=== PATIENT | female | born 1955 | race Caucasian/White ===

== ENCOUNTER 2019-05-10 09:32 | Inpatient (IN) ==
[2019-05-10] MEDS ORDERED: CeFAZolin Syr 3,000MG/30 ML 3,000 MG/30 ML SYRINGE IVPB ONE (09:57)
[2019-05-10] MEDS ORDERED: Ringers Solution, Lactated 1,000 ML IVC SCH ×2 (10:00→15:13)
[2019-05-10 10:16] LABS: Hemoglobin 12.6 g/dL (11.5-15.4); Mean Corpuscular Volume 101.2 fL (83.0-100.0); Red Cell Distribution Width 14.6 % (11.5-14.5)
[2019-05-10 10:18] LABS: Hematocrit 40.7 % (35.3-44.9); Immature Platelets 1.3 % (1.1-6.1); Mean Corpuscular Hemoglobin 31.3 pg (28.0-33.3); Mean Platelet Volume 9.5 fL (9.4-12.4); Platelet Count 184 K/mcL (140-400); Red Blood Count 4.02 M/mcL (3.82-4.97); White Blood Count 23.2 K/mcL (4.3-11.1)
[2019-05-10 10:41] LABS: Lymphocytes # 12.5 K/mcL (0.6-4.6); Monocytes # 2.8 K/mcL (0.0-1.3); Neutrophils # 7.9 K/mcL (1.6-8.9)
[2019-05-10 10:43] LABS: Platelet Estimate Normal (Normal); Reactive Lymphocytes Present (Not Present)
[2019-05-10] MEDS ORDERED: Ethanol\\Acetic Acid\\Na Ace\\Ben 1,000 ML IRRIG.SOLN IR ONE (10:44)
[2019-05-10] MEDS ORDERED: Acetaminophen IV 1,000 MG/100 ML INFUS..BTL IVPB ONE (10:45)
[2019-05-10] MEDS ORDERED: *HR* Rocuronium Bromide 50 MG/5 ML VIAL ONE (10:52)
[2019-05-10] MEDS ORDERED: Ondansetron 4 MG/2 ML VIAL ONE (10:52)
[2019-05-10] MEDS ORDERED: *HR* FentaNYL (PF) 100 MCG/2 ML VIAL ONE ×2 (10:52→12:08)
[2019-05-10] MEDS ORDERED: *HR* Succinylcholine 200 MG/10 ML VIAL IVP ONE (10:52)
[2019-05-10] MEDS ORDERED: *HR* Midazolam HCl 2 MG/2 ML VIAL ONE (10:52)
[2019-05-10] MEDS ORDERED: Dexamethasone 4 MG/ML VIAL ONE (10:52)
[2019-05-10] MEDS ORDERED: Lidocaine -MPF 2% 2 ML VIAL ONE (10:52)
[2019-05-10] MEDS ORDERED: *HR* Propofol 200 MG/20 ML VIAL IVP ONE (10:52)
[2019-05-10] MEDS ORDERED: *HR* Meperidine 25 MG/ML SYRINGE IVP PRN (11:08)
[2019-05-10] MEDS ORDERED: Ondansetron 4 MG/2 ML VIAL IVP ONE (11:08)
[2019-05-10] MEDS ORDERED: *HR* OxyCODONE Immed Rel 5 MG TABLET PO PRN ×2 (11:08→15:13)
[2019-05-10] MEDS ORDERED: EPHEDrine 50 MG/ML VIAL ONE (12:31)
[2019-05-10] MEDS: *HR* HYDROmorphone PF 0.5 MG/0.5 ML SYRINGE IVP PRN ×2 (13:40→13:51)
[2019-05-10 14:00] LABS: Hematocrit 40.1 % (35.3-44.9); Hemoglobin 12.5 g/dL (11.5-15.4)
[2019-05-10 14:32] LABS: Calcium 9.2 mg/dL (8.6-10.3); Potassium 4.2 mEq/L (3.5-5.1)
[2019-05-10] MEDS ORDERED: *HR* OxyCODONE/APAP 5/325 TABLET PO PRN (15:13)
[2019-05-10] MEDS ORDERED: Sennosides 8.6 MG TABLET PO PRN (15:13)
[2019-05-10] MEDS ORDERED: Dextrose Gel 15 GM/37.5 ML TUBE PO PRN ×2 (15:13)
[2019-05-10] MEDS ORDERED: MOM Conc 10 ML UD.LIQ PO PRN (15:13)
[2019-05-10] MEDS ORDERED: D5% in Water 1,000 ML IVC PRN (15:13)
[2019-05-10] MEDS ORDERED: *HR* Dextrose 50 % in Water (Syg) 50 ML SYRINGE IVP PRN (15:13)
[2019-05-10] MEDS ORDERED: Naloxone 0.4 MG/ML INJ IVP PRN (15:13)
[2019-05-10] MEDS ORDERED: Ondansetron 4 MG/2 ML VIAL IVP PRN (15:13)
[2019-05-10] MEDS ORDERED: CeFAZolin Syr 3,000MG/30 ML 3,000 MG/30 ML SYRINGE IVPB SCH (16:00)
[2019-05-10] MEDS ORDERED: Insulin LISPRO 300 UNITS/3 ML VIAL SQ SCH ×2 (16:30→21:00)
[2019-05-10] MEDS ORDERED: *HR* Enoxaparin 30 MG/0.3 ML SYRINGE SQ SCH ×2 (18:00)
[2019-05-10 18:01] VITALS: BP 141/70
[2019-05-10] MEDS ORDERED: Nystatin POWDER 30 GM BOTTLE TP SCH (21:00)
[2019-05-11] MEDS ORDERED: Famotidine 20 MG TABLET PO SCH (07:30)
[2019-05-11] MEDS ORDERED: Multivit/Ca/Min/Fe/FA 1 TAB TABLET PO SCH (09:00)
[2019-05-11] MEDS ORDERED: NON-FORMULARY MEDICATION 1 EACH EACH (Vit A/C/E Ac/Znox/Cupric Oxide [Eye Vitamin-Minerals PO SCH (09:00)
[2019-05-11] MEDS ORDERED: allopurinoL 300 MG TABLET PO SCH (09:00)
[2019-05-11] MEDS ORDERED: Aspirin Enteric Coated 81 MG Tablet PO SCH (09:00)
== END 2019-05-10 20:05 | disposition home health service (06) ==
LOC: SAMDAY 09:32 → 3NENU 13:05
PROVIDERS: ADMIT Orthopaedic Surgery; ATTEND Orthopaedic Surgery